=== PATIENT | male | born 1965 | race Caucasian/White ===

== ENCOUNTER 2021-05-28 18:53 | Emergency (ER) | payer BC, SELFPAY ==
[2021-05-28 19:08] VITALS: BP 132/85; PULSE 78; RESP 18; TEMP 37.3; O2SAT 97
--- NOTE | 2021-05-28 19:34 | ED.URI ---
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 No sore throat, earache, loss of taste/smell, CP, rash, vomiting diarrhea now, S OB. Symptoms are mild, despite Motrin use with myalgias of his large muscle groups. Dgdlw-gs-[id number] testing for COVID-19 antigen is weakly, definitely positive Related Data Home Medications Medication Instructions Recorded Confirmed [id number] 1 cap PO DAILY 09/17/19 05/28/21 [Daily Multivitamin] omega 2-ann-czc-fish oil [Fish Oil] 1 cap PO DAILY 09/17/19 05/28/21 vitamin B complex [B 1 tablet PO DAILY 09/17/19 05/28/21 Complex-Vitamin B12] Allergies Allergy/AdvReac Type Severity Reaction Status Date / Time No Known Allergies Allergy Unknown Verified 05/28/21 19:16 Review of Systems Review of Systems: General/Constitutional: No weight loss,fever Eyes: N0: Redness,discharge Ears/Nose/Throat: No: Epistaxis,ear discharge Respiratory: Denies: Hemoptysis Gastrointestinal: No Vomiting, Bleeding-rectal Skin: No Lumps, eruption Neurologic: No Focal Weakness,Sz Hematologic: Denies: Petechiae/Purpura Psychiatric: No: Suicida ideationl All Other Systems: Reviewed and Negative PMF Past Medical History Medical History (Updated 05/28/21 @ 19:38 by Socrates Ceballos MD) GERD (gastroesophageal reflux disease) Varicose veins of right lower extremity Surgical History Surgical History (Updated 09/17/19 @ 15:37 by Carmen Degroot) History of rotator cuff surgery Left Social History Social History (Updated 09/17/19 @ 15:36 by Carmen Degroot) Smoking status: Never smoker Alcohol intake: current Comments At time of signature, agree with nursing past medical, surgical, social and family history. There is no relevant family history pertinent to the presenting complaint Exam Narrative: General Appearance: Well appearing, Well nourished EYE: PERRLA, Conjunctiva clear Ears: Auditory canal normal, TM normal Nose: Rhinorrhea, Mucousal erythema Mouth/Throat: MM moist, Uvula midline, Pharyngeal erythema Neck: Supple, No adenopathy Respiratory: No respiratory distress, Breath sounds equal, Clear to auscultation Cardiovascular: RRR, No JVD Musculoskeletal: Non tender, Normal strength Skin: Warm, Dry Neurological: A&O x3, CN II-XII intact Psychiatric: Normal mood, Normal affect Course Vital Signs Vital signs: Vital Signs Temperature 99.2 F 05/28/21 19:08 Pulse Rate 78 05/28/21 19:08 Respiratory Rate 18 05/28/21 19:08 Blood Pressure 132/85 05/28/21 19:08 Pulse Oximetry 97 05/28/21 19:08 Temperature 99.2 F 05/28/21 19:08 Pulse Rate 78 05/28/21 19:08 Respiratory Rate 18 05/28/21 19:08 Blood Pressure 132/85 05/28/21 19:08 Pulse Oximetry 97 05/28/21 19:08 MDM - URI/Sore Throat Lab Data Labs: Lab Results 05/28/21 Range/Units 19:20 POC SARS CoV-2 Ag Positive (Negative) Discharge Plan Discharge Clinical Impression: COVID-19 Patient Disposition: Home, Self-Care Condition: Stable Instructions: COVID-19 (Coronavirus Disease 2019) (ED) Additional Instructions: Get and take separate vitamins D, C, B, zinc and daily aspirin Consider getting pulse ox, return to hospital for walking pulse ox less than 94% ['A' grade] Isolate ,and inform and quarantine close family and contacts Consider reviewing video Dr. Bucio 'If you get Covid-19' Prescriptions: New codeine-guaifenesin 10-100 mg/5 mL liquid 7.5 ml PO Q6H PRN (Reason: cough) Qty: 118 RF: 0 No Action Daily Multivitamin 200-100-500 mcg Capsule 1 cap PO DAILY RF: 0
== END 2021-05-28 19:46 | disposition home or self-care (01) ==
PROVIDERS: Emergency Provider Emergency Medicine
DX: U07.1 COVID-19 (principal); K21.9 Gastro-esophageal reflux disease without esophagitis; I83.91 Asymptomatic varicose veins of right lower extremity
CPT/HCPCS: 87426; 99213; C9803; G0463